=== PATIENT | male | born 1950 | race Caucasian/White ===

== ENCOUNTER 2021-08-19 12:18 | Inpatient (IN) | payer OTHER ==
[~2021-08-19] VITALS: Ht 165.1 cm; Wt 90.7 kg
[2021-08-19] VITALS (9 sets, daily range): BP systolic 96–110; BP diastolic 36–60
--- NOTE | ~2021-08-19 | PROC ---
[address] [address] PROCEDURE REPORT Name: MELINDA PARHAM Room: [address] IN .R.#: [id number] Admission: 08/19/21 Attend Phys: Katrina Houston MD Discharge: Date of : 48 Report #: [id number] THIS REPORT FOR: cc: January Tiwari Mohammad K. DO [facility],Medical Records Staff ~ For GI report, please see the Provation report in Perceptive 7 content. By: [id number] Records Staff JOSHUA /PIERCE
--- NOTE | ~2021-08-19 | PROC ---
[address] [address] PROCEDURE REPORT Name: MELINDA PARHAM Room: [address] IN .R.#: [id number] Admission: 08/19/21 Attend Phys: Katrina Houston MD Discharge: 08/24/21 Date of : 48 Report #: [id number] THIS REPORT FOR: cc: January Tiwari Mohammad K. DO [facility],Medical Records Staff ~ For GI report, please see the Provation report in Perceptive 7 content. By: [id number] Records Staff JOSHUA /PIERCE
--- NOTE | ~2021-08-19 | CON ---
[address] [address] CONSULTATION Name: MELINDA PARHAM Room: [address] IN ..#: [id number] Admission: 08/19/21 Attend Phys: Katrina Houston MD Discharge: Date of : 48 Report #: [id number] THIS REPORT FOR: cc: January Tiwari,Anali Bullock MD ~ cc: January Tiwari DO DATE OF CONSULTATION: 08/19/2021 REQUESTING PHYSICIAN: Katrina Houston MD REASON FOR CONSULTATION: GI bleed. HISTORY OF PRESENT ILLNESS: This is a 70-year-old male who reports 2 days of melena in stool. He also has had symptoms of nausea, vomiting and coffee-ground emesis. He is currently hypotensive with systolic pressure in mid 60s. His BUN and creatinine ratio is 40. PAST MEDICAL HISTORY: Significant for history of hypertension, gastroesophageal reflux disease, hypercholesterolemia, anemia, inguinal hernia repair, laser surgery for varicose veins. ALLERGIES: No known drug allergy. MEDICATIONS: Please refer to MAR. SOCIAL HISTORY: The patient lives at home. There is no history of drug use. The patient is a former smoker. He also drinks alcohol occasionally. FAMILY HISTORY: Noncontributory. PHYSICAL EXAMINATION: VITAL SIGNS: Reveals blood pressure of 97/40, pulse 79, respirations 18, temperature 97.4. LUNGS: Clear. CARDIOVASCULAR: Regular. ABDOMEN: Large, soft, nontender, nondistended. Bowel sounds are positive. NEUROLOGIC: The patient is alert and oriented x 3. LABORATORY DATA: Reveal sodium of 127, potassium is 4.6, BUN is 142, creatinine 3.8, AST is 10, ALT 16, total bili is 0.3, albumin is 3.2. WBC is 9.0 with hemoglobin of 11.1. IMAGING: CT of abdomen and pelvis was obtained. [place] [address] CONSULTATION Name: MELINDA PARHAM Room: [address] IN [facility].#: [id number] Admission: 08/19/21 Attend Phys: Katrina Houston MD Discharge: Date of : 48 Report #: [id number] cholelithiasis, but otherwise unremarkable. ASSESSMENT AND PLAN: The patient with hypotension, history of melena in stool x 2 days and hematemesis. We will fluid resuscitate him as he has also renal failure. I will consider upper endoscopy to rule out gastroduodenal ulcer and treat. We will consider giving him a dose of Reglan and erythromycin to empty out the stomach for better visualization. He should be on Protonix drip, so we loaded him with 80 mg and put him on 8 mg per hour. I will make further recommendation based on endoscopic finding. By: 1725 Gilles Flores MD /domingo
[~2021-08-19 12:18] MED LIST: METOPROLOL SUCC50 MG PO; WATER PILL PO; ZANTAC 150MG T150 MG PO
[2021-08-19] MEDS ORDERED: DOXAZOSIN MESYLA2 MG PO (12:38)
[2021-08-19] MEDS ORDERED: LISINOPRIL20 MG PO (12:38)
[2021-08-19] MEDS ORDERED: TRIAMTERENE-HC1 EAC2 PO (12:39)
[2021-08-19] MEDS ORDERED: VITAMIN D31250 MC1 PO (12:39)
[2021-08-19] MEDS ORDERED: OMEPRAZOLE 20 M20 M1 PO (12:39)
[2021-08-19 13:42] LABS: ABSOLUTE LYMPHOCYTES 1.2 thou/uL (0.8-5.3); ABSOLUTE MONOCYTES 0.7 thou/uL (0.0-1.2); BASOPHILS 0.5 %; EOSINOPHILS 0.4 %; HEMATOCRIT 30.8 % (42.0-52.0); LYMPHOCYTES 13.5 %; MCHC 35.5 g/dL (28.0-37.0); MCV 84.6 fL (80.0-100.0); MONOCYTES 8.1 %; MPV 7.6 fl. (7.2-11.1); NUCLEATED RBCS 0 /100WBC; PLATELET COUNT* 290 thou/uL (150-400); POLYS 77.5 %; RBC 3.65 mil/uL (4.50-6.00); RDW-CV 13.6 % (10.5-14.5)
[2021-08-19 13:48] LABS: CALCIUM 8.1 mg/dL (8.5-10.1); CREATININE 3.8 mg/dL (0.6-1.3); POTASSIUM 4.6 mmol/L (3.5-5.1)
[2021-08-19 13:52] LABS: ALBUMIN 3.2 g/dL (3.4-5.0); TOTAL BILIRUBIN 0.3 mg/dL (<0.1-1.0); TOTAL PROTEIN 6.5 g/dL (6.4-8.2)
[2021-08-19 15:18] LABS: URINE BILIRUBIN NEGATIVE (Negative); URINE BLOOD NEGATIVE (Negative); URINE CLARITY CLEAR; URINE COLOR YELLOW; URINE GLUCOSE-RANDOM NEGATIVE (Negative); URINE KETONES NEGATIVE (Negative); URINE LEUKOCYTES-REFLEX NEGATIVE (Negative); URINE NITRITE-REFLEX NEGATIVE (Negative); URINE PROTEIN NEGATIVE (Negative); URINE SPECIFIC GRAVITY 1.015 (1.005-1.030); URINE UROBILINOGEN 0.2 E.U./dl (0.2-1.0)
[2021-08-19 20:46] LABS: HEMATOCRIT 28.6 % (42.0-52.0); HEMOGLOBIN 9.8 gm/dL (14.0-18.0)
[2021-08-20] VITALS (42 sets, daily range): BP systolic 79–154; BP diastolic 23–82
[2021-08-20 02:49] LABS: HEMATOCRIT 28.6 % (42.0-52.0); HEMOGLOBIN 10.1 gm/dL (14.0-18.0); MCH 29.8 pg (26.0-34.0); MCHC 35.1 g/dL (28.0-37.0); MCV 84.8 fL (80.0-100.0); MPV 7.4 fl. (7.2-11.1); RBC 3.38 mil/uL (4.50-6.00); RDW-CV 13.6 % (10.5-14.5); WBC 8.4 thou/uL (4.0-11.0)
[2021-08-20 03:06] LABS: ALBUMIN 2.8 g/dL (3.4-5.0); CALCIUM 7.3 mg/dL (8.5-10.1); MAGNESIUM 1.8 mg/dL (1.8-2.4); TOTAL BILIRUBIN 0.7 mg/dL (<0.1-1.0); TOTAL PROTEIN 5.4 g/dL (6.4-8.2)
[2021-08-20 03:21] LABS: CREATININE 2.1 mg/dL (0.6-1.3)
--- NOTE | 2021-08-20 06:11 | NUR ---
Pt arrived to floor around 1999. Pt transferred from PACU and recovered in pt room by ELECTRICAL LINE MECHANIC's. Pt had blood infusing on arrival and transfer of care to ORDER CHECKER.
[2021-08-20 06:13] LABS: HEMATOCRIT 28.3 % (42.0-52.0)
--- NOTE | 2021-08-20 10:59 | EKG ---
[place] [address] ELECTROCARDIOGRAM REPORT Name: MELINDA PARHAM Room: [address] IN .R.#: [id number] Admission: 08/19/21 Attend Phys: Katrina Houston, Discharge: Date of : 48 Date of Service: 08/19/21 1309 Report #: [id number] THIS REPORT FOR: //name// [facility] ED Test Date: 2021-08-19 Test Time: 13:09:42 Pat Name: MELINDA PARHAM Department: Room: [facility] Gender: M Elevator Operator Service: SIDRA : 1950 Requested By: Mamadou Putnam Order Number: [id number] MD: Foster Wheat Measurements Intervals [place] Rate: 64 P: 52 CO: 183 QRS: 68 QRSD: 128 T: 58 QT: 412 QTc: 425 Interpretive Statements Sinus rhythm Right bundle branch block Nonspecific ST-T alteration No previous ECG available for comparison Electronically Signed On 08-20-2021 10:58:55 PETROLEUM REFINERY WORKER by Foster Wheat [email or web address] <ELECTRONICALLY SIGNED> By: Foster Wheat MD, [facility] 08/20/21 1058 1309 1309 Foster Wheat MD, [facility] /EPI
[2021-08-20 15:20] LABS: HEMATOCRIT 31.4 % (42.0-52.0); HEMOGLOBIN 10.8 gm/dL (14.0-18.0)
[2021-08-21 02:06] VITALS: BP 134/60
[2021-08-21 03:58] LABS: HEMATOCRIT 28.8 % (42.0-52.0); MCH 29.7 pg (26.0-34.0); MCHC 34.6 g/dL (28.0-37.0); MCV 85.9 fL (80.0-100.0); MPV 7.1 fl. (7.2-11.1); RBC 3.35 mil/uL (4.50-6.00); RDW-CV 13.8 % (10.5-14.5); WBC 6.7 thou/uL (4.0-11.0)
[2021-08-21 04:30] LABS: ALBUMIN 2.8 g/dL (3.4-5.0); CALCIUM 7.9 mg/dL (8.5-10.1); MAGNESIUM 1.7 mg/dL (1.8-2.4); POTASSIUM 4.4 mmol/L (3.5-5.1); TOTAL BILIRUBIN 0.4 mg/dL (<0.1-1.0); TOTAL PROTEIN 5.7 g/dL (6.4-8.2)
--- NOTE | 2021-08-21 05:52 | NUR ---
PT IS ABLE TO COMMUNICATE HIS NEEDS TO STAFF EFFECTIVELY. HE HAS DENIED THE NEED FOR PAIN MEDICATION UP TO THIS TIME. GI FOLLOWING.
[2021-08-21 06:40] VITALS: BP 151/55
[2021-08-21 08:00] VITALS: BP 158/63
[2021-08-21 13:11] VITALS: BP 138/64
[2021-08-21 16:40] VITALS: BP 156/60
[2021-08-21 19:44] VITALS: BP 137/59
[2021-08-22 00:06] VITALS: BP 115/76
--- NOTE | 2021-08-22 03:10 | NUR ---
EKG DONE ON PT DUE TO SUSPECTED RHYTHM CHANGE. EKG CONFIRMS PT NOW HAS ATRIAL FIB. PAGED CONCERNING RHYTHM CHANGE; PT IS ASYMPTOMATIC BUT HR DOES GO TO THE 150s+ WHEN PT IS UP. PT ADVISED TO LIMIT MOVEMENT AROUND THE ROOM BECAUSE HIS HR GOES SO HIGH WHEN HE IS UP.
[2021-08-22 03:42] VITALS: BP 119/62
[2021-08-22 05:18] LABS: HEMATOCRIT 28.4 % (42.0-52.0); HEMOGLOBIN 10.1 gm/dL (14.0-18.0); MCH 29.8 pg (26.0-34.0); MCHC 35.5 g/dL (28.0-37.0); MCV 83.9 fL (80.0-100.0); MPV 7.4 fl. (7.2-11.1); RBC 3.38 mil/uL (4.50-6.00); RDW-CV 13.6 % (10.5-14.5); WBC 8.2 thou/uL (4.0-11.0)
[2021-08-22 05:48] LABS: ALBUMIN 2.9 g/dL (3.4-5.0); CALCIUM 8.3 mg/dL (8.5-10.1); CREATININE 0.9 mg/dL (0.6-1.3); MAGNESIUM 1.4 mg/dL (1.8-2.4); POTASSIUM 4.1 mmol/L (3.5-5.1); TOTAL BILIRUBIN 0.2 mg/dL (<0.1-1.0); TOTAL PROTEIN 5.7 g/dL (6.4-8.2)
[2021-08-22 08:00] VITALS: BP 145/89
--- NOTE | 2021-08-22 08:22 | NUR ---
PT IS ABLE TO COMMUNICATE HIS NEEDS TO STAFF EFFECTIVELY. HE HAS DENIED THE NEED FOR PAIN MEDICATION UP TO 0700 THIS MORNING. PT HAD A CHANGE IN HEART RHYTHM OVERNIGHT (SEE PREVIOUS NOTE) AND IS NOW IN ATRIAL FIB.; AWARE. GI FOLLOWING; PT HAS BEEN NPO SINCE MIDNIGHT FOR A POSSIBLE EGD TODAY.
--- NOTE | 2021-08-22 10:03 | EKG ---
[place] [address] ELECTROCARDIOGRAM REPORT Name: MELINDA PARHAM Room: [place] [address] ADM IN [facility]#: [id number] Admission: 08/19/21 Attend Phys: Katrina Houston, Discharge: Date of : 48 Date of Service: 08/22/21 0304 Report #: [id number] THIS REPORT FOR: //name// [facility] Test Date: 2021-08-22 Test Time: 03:04:33 Pat Name: MELINDA PRASAD Department: Room: [place] [address] Gender: M Media Services Director: [facility] : 1950 Requested By: Luis Nieves Order Number: [id number] Gwen MD: Donnie Sanchez Measurements Intervals [place] Rate: 116 P: [place]: QRS: 52 QRSD: 122 T: 42 QT: 372 QTc: 517 Interpretive Statements Atrial fibrillation Right bundle branch block Compared to ECG 08/19/2021 13:09:42 Sinus rhythm no longer present Electronically Signed On 08-22-2021 10:03:18 ELASTIC TAPE INSERTER by Donnie Sanchez [email or web address] <ELECTRONICALLY SIGNED> By: Donnie Sanchez MD, [facility] 08/22/21 1003 Donnie Sanchez MD, [facility] /EPI
[2021-08-22 11:25] VITALS: BP 123/56
[2021-08-22 11:59] VITALS: BP 135/63
--- NOTE | 2021-08-22 12:34 | 2DMMODE ---
[place] [address] 2 D/M-MODE ECHOCARDIOGRAM Name: MELINDA PARHAM Room: [place] [address] ADM IN [place]#: [id number] Admission: 08/19/21 Attend Phys: Katrina Houston, Discharge: Date of : 48 Date of Service: 08/22/21 1234 Report #: [id number] THIS REPORT FOR: cc: January Tiwari,Donnie Solis MD [facility] ~ APPROVED REPORT Study performed: 08/22/2021 10:52:01 EXAM: Comprehensive 2D, Doppler, and color-flow Echocardiogram Patient Location: In-Patient Room #: [facility] Status: routine BSA: 2.02 HR: 107 bpm BP: 123/56 mmHg Rhythm: Atrial Fibrillation Other Information Study Quality: Good Indications Atrial Fibrillation 2D Dimensions IVSd: 10.50 (7-11mm) LVOT Diam: 22.64 (18-24mm) LVDd: 39.94 mm PWd: 10.03 (7-11mm) Ascending Ao: 38.78 (22-36mm) LVDs: 23.40 (25-40mm) Aortic Root: 37.78 mm Volumes Left Atrial Volume (Systole) LA ESV Index: 23.10 mL/m2 Aortic Valve AoV Peak Pierce.: 1.45 m/s AO Peak Gr.: 8.46 mmHg LVOT Max P.08 mmHg AO Mean Gr.: 4.45 mmHg LVOT Mean P.49 mmHg LVOT Max V: 1.13 m/s AO V2 VTI: 24.21 cm LVOT Mean V: 0.73 m/s YURI (VTI): 2.69 cm2 LVOT V1 VTI: 16.18 [place] [address] 2 D/M-MODE ECHOCARDIOGRAM Name: MELINDA PARHAM Room: [address] IN [facility]#: [id number] Admission: 08/19/21 Attend Phys: Katrina Houston, Discharge: Date of : 48 Date of Service: 08/22/21 1234 Report #: [id number] TDI Medial E' Pierce.: 0.15 m/s Lateral E' Pierce.: 0.16 m/s Pulmonary Valve PV Peak Pierce.: 1.18 m/s PV Peak Gr.: 5.56 mmHg Tricuspid Valve RAP Estimate: 5.00 mmHg TR Peak Gr.: 23.90 mmHg RVSP: 29.00 mmHg PA Pressure: 29.00 mmHg Left Ventricle The left ventricle is normal size. There is normal LV segmental wall motion. There is normal left ventricular wall thickness. Left ventricular systolic function is normal. The left ventricular ejection fraction is within the normal range. LVEF is 55-60%. This study is not technically sufficient to allow evaluation of the LV diastolic function due to atrial fibrillation. Right Ventricle The right ventricle is normal size. The right ventricular systolic function is normal. Atria Left atrium is mildly dilated. The right atrium size is normal. Aortic Valve The aortic valve is normal in structure. No aortic regurgitation is present. There is no aortic valvular stenosis. Mitral Valve The mitral valve is normal in structure. There is no mitral valve regurgitation noted. No evidence of mitral valve stenosis. Tricuspid Valve The tricuspid valve is normal in structure. Mild tricuspid regurgitation. No pulmonary hypertension. Pulmonic Valve The pulmonary valve is normal in structure. There is no pulmonic valvular regurgitation. Great Vessels The aortic root is normal in size. The ascending aorta is mildly [facility] [address] [place] [address] 2 D/M-MODE ECHOCARDIOGRAM Name: MELINDA PARHAM Room: [address] IN [facility]#: [id number] Admission: 08/19/21 Attend Phys: Katrina Houston, Discharge: Date of : 48 Date of Service: 08/22/21 1234 Report #: [id number] dilated. IVC is normal in size and collapses >50% with inspiration. Pericardium There is no pericardial effusion. <Conclusion> LVEF is 55-60%. Left atrium is mildly dilated. <ELECTRONICALLY SIGNED> By: Donnie Sanchez MD, FACC 08/22/21 1234 1234 1234 Donnie Sanchez MD, FACC /INF
--- NOTE | 2021-08-22 12:40 | CON ---
[address] [address] CONSULTATION Name: MELINDA PARHAM Room: [address] IN M.R.#: [id number] Admission: 08/19/21 Attend Phys: Katrina Houston MD Discharge: Date of : 48 Report #: [id number] THIS REPORT FOR: cc: January Tiwari,Donnie Solis MD [facility] ~ cc: January Tiwari DO DATE OF CONSULTATION: 08/22/2021 CARDIOLOGY CONSULTATION PRIMARY CARE PHYSICIAN: January Tiwari DO, in [place]. HISTORY OF PRESENT ILLNESS: The patient is a 70-year-old single white male who I was asked to see in the hospital today after he was noted to be in atrial fibrillation. The patient has no previous history of heart disease. He is not very active at this time. He was doing well until 4 days ago. He woke up last Sunday and felt lightheaded. He apparently had a loose black stool. He then vomited what appeared to be coffee-grounds. He notes his heart was racing. He was brought here to [facility] by family members. He was admitted and seen by GI. He was scheduled to undergo endoscopy. On admission, the patient was in a sinus rhythm. However, last night, he went into atrial fibrillation with rapid ventricular response rate. Cardiology consultation was requested. The patient notes occasional skipped heartbeats in the past, but no prolonged palpitations or syncope. He denies any recent fever. He has no history of chest pain, shortness of breath. He has a previous history of lower extremity edema. PAST MEDICAL HISTORY: Significant for hernia repair. He has a history of hypertension, hyperlipidemia. No diabetes. He has had laser therapy for varicose veins in the past. MEDICATIONS: On admission included metoprolol, lisinopril, Cardura, Dyazide, omeprazole. ALLERGIES: HE HAS PREVIOUS HIVES AFTER RECEIVING IV CONTRAST FOR CT SCAN YEARS AGO. FAMILY HISTORY: Unknown since he was adopted. SOCIAL HISTORY: He is , lives with daughter here in [place]. He is a retired construction scheduler. He uses alcohol occasionally. REVIEW OF SYSTEMS: No history of stroke. He does snore [place] [address] CONSULTATION Name: MELINDA PARHAM Room: [address]#: [id number] Admission: 08/19/21 Attend Phys: Katrina Houston MD Discharge: Date of : 48 Report #: [id number] of asthma. He has had previous colonoscopy showed a polyp. No kidney disease, no cancer, no psychiatric illness. No chronic skin condition. PHYSICAL EXAMINATION: GENERAL: Revealed a middle-aged male, who appeared in no acute distress. VITAL SIGNS: He had a blood pressure of 120/60, pulse now is 100, he was afebrile. HEENT: He was anicteric. Conjunctivae pink. Mucous membranes moist. NECK: Neck veins do not appear distended. No carotid bruits. Neck is supple. CHEST: Clear to auscultation. HEART: Irregular, tachycardia. No significant murmurs. ABDOMEN: Soft, it was obese. No masses were palpated. EXTREMITIES: Had no edema. Dorsalis pedis pulse 3+ bilaterally. SKIN: Cool and dry. LABORATORY DATA: His ECG on admission showed a sinus rhythm and right bundle branch block. He now appears to be in rapid atrial fibrillation. His workup so far, he had a CT scan of the abdomen on admission that showed gallstones, otherwise unremarkable. His lab work on admission, his creatinine was 3.8, it is now 0.9, albumin is 2.9. High sensitivity troponin was 5. His hemoglobin on admission was 9.8. He then received a transfusion. His COVID antigen stat test was negative. Urinalysis negative for protein. IMPRESSION AND RECOMMENDATIONS: 1. Atrial fibrillation. I would recommend an echocardiogram and thyroid function studies. I would recommend diltiazem to slow the ventricular response rate. I would not recommend anticoagulation at this time secondary to gastrointestinal bleeding. 2. Gastrointestinal bleeding. The patient is scheduled for endoscopy. He appears to have no cardiac contraindication to endoscopy. 3. Anemia. The patient received a transfusion. 4. Acute kidney injury. Kidney function improved with hydration. 5. PREVIOUS REACTION TO IV CONTRAST. 6. Hypertension. The patient has been on beta sean, REGULO inhibitor, alpha sean and diuretic. 7. Hyperlipidemia. The patient is on a statin drug. <ELECTRONICALLY SIGNED> By: Donnie Sanchez MD, [facility] 08/22/21 1240 0928 [id number] Sanchez MD, [facility] /nt
--- NOTE | 2021-08-22 16:44 | NUR ---
CM ASSESSMENT: PT A&O, INDEPENDENT WITH ADL'S, AND DRIVES. PT RESIDES AT HOME WITH HIS DTR. PT USES A CANE FOR MOBILITY. PT HAS PAST HX OF HH. PT HAS 0 HX OF SNF. PT MAY BENEFIT FROM HH AT D/C. CM WILL REMAIN AVAILABLE TO ASSIST AND FOLLOW NEEDED.
--- NOTE | 2021-08-22 17:55 | NUR ---
pt progressing towards dc goals. pt up in room walking with his cane with steady gait. vss afebrile. pt down for repeat egd, biopsy's were taken and pt was brought back up to his room, and was allowed to eat regular diet. heart rate back in normal sinus rhythm. will continue to monitor plan of care.
[2021-08-22 20:01] VITALS: BP 161/59
[2021-08-23 00:42] VITALS: BP 148/61
[2021-08-23 04:18] VITALS: BP 148/52
[2021-08-23 04:46] LABS: HEMATOCRIT 28.1 % (42.0-52.0); HEMOGLOBIN 9.6 gm/dL (14.0-18.0); MCH 29.6 pg (26.0-34.0); MCHC 34.2 g/dL (28.0-37.0); MCV 86.4 fL (80.0-100.0); MPV 7.3 fl. (7.2-11.1); RBC 3.25 mil/uL (4.50-6.00); RDW-CV 13.7 % (10.5-14.5); WBC 8.4 thou/uL (4.0-11.0)
[2021-08-23 05:01] LABS: CHOLESTEROL 142 mg/dL (<200); HDL CHOLESTEROL 34 mg/dL (>40); LDL CHOLESTEROL 82 mg/dL (<100); TC:HDL 4.2 Ratio (Not establshd); TRIGLYCERIDE 133 mg/dL (<150); VLDL 27 mg/dL (<40)
[2021-08-23 05:05] LABS: SERUM ASSESSMENT Clear
[2021-08-23 07:52] VITALS: BP 150/59
--- NOTE | 2021-08-23 10:07 | NUR ---
PLAN OF CARE: PLAN FOR THE PT TO D/C HOME WITH SELF-CARE WHEN MEDICALLY STABLE. PT MAY BENEFIT FROM HH AT D/C. PT IS WILLING TO ACCEPT HH AT D/C, BUT DOES NOT BELIEVE THAT HE WILL NEED IT. CM WILL REMAIN AVAILABLE TO ASSIST AND FOLLOW NEEDED.
--- NOTE | 2021-08-23 11:38 | EKG ---
[place] [address] ELECTROCARDIOGRAM REPORT Name: MELINDA PARHAM Room: [place] [address] ADM IN [facility].#: [id number] Admission: 08/19/21 Attend Phys: Katrina Houston, Discharge: Date of : 48 Date of Service: 08/23/21 0749 Report #: [id number] THIS REPORT FOR: //name// [facility] Test Date: 2021-08-23 Test Time: 07:49:24 Pat Name: MELINDARandall PARHAM Department: Room: [place] [address] Gender: M Locomotive Pipe Fitter: : 1950 Requested By: Donnie Sanchez Order Number: [id number] Gwen MD: Donnie Sanchez Measurements Intervals [place] Rate: 63 P: 70 KS: 63 QRS: 43 QRSD: 122 T: 48 QT: 427 QTc: 438 Interpretive Statements Sinus rhythm Short KS interval Right bundle branch block Compared to ECG 08/22/2021 03:04:33 Atrial fibrillation no longer present Electronically Signed On 08-23-2021 11:38:10 SOFTWARE DESIGN ENGINEER by Donnie Sanchez [email or web address] <ELECTRONICALLY SIGNED> By: Donnie Sanchez MD, [facility] 08/23/21 1138 0749 0749 Donnie Sanchez MD, [facility] /EPI
[2021-08-23] MEDS ORDERED: SORINE 80 MG TA80 M1 PO (11:52)
[2021-08-23 12:05] VITALS: BP 119/53
[2021-08-23 16:54] VITALS: BP 119/45
[2021-08-23 20:00] VITALS: BP 107/77
[2021-08-24 00:49] VITALS: BP 138/57
--- NOTE | 2021-08-24 03:57 | NUR ---
ASSUMED CARE OF PT AFTER REPORT AT 1915. PT A&OX4. VSS. PHYSICAL ASSESSMENT COMPLETED AND CHARTED. PT ON RA. PT TRACING SR/BBB ON TELE. PT DENIES ANY PAIN. CALL LIGHT WITHIN REACH.
[2021-08-24 04:14] VITALS: BP 142/54
[2021-08-24 08:00] VITALS: BP 135/60
--- NOTE | 2021-08-24 09:28 | NUR ---
cm faxed referral to [facility] . [phone].
--- NOTE | 2021-08-24 10:10 | EKG ---
[place] [address] ELECTROCARDIOGRAM REPORT Name: MELINDA PARHAM Room: [address] IN .R.#: [id number] Admission: 08/19/21 Attend Phys: Katrina Houston, Discharge: Date of : 48 Date of Service: 08/24/21 0552 Report #: [id number] THIS REPORT FOR: //name// [facility] Test Date: 2021-08-24 Test Time: 05:52:09 Pat Name: MELINDA PARHAM Department: Room: [facility] Gender: M Legal Biller: IVAN : 1950 Requested By: Donnie Sanchez Order Number: [id number] Reading MD: Donnie Sanchez Measurements Intervals [place] Rate: 71 P: 44 KS: 168 QRS: 42 QRSD: 114 T: 35 QT: 425 QTc: 462 Interpretive Statements Sinus rhythm Incomplete right bundle branch block Low voltage, extremity and precordial leads Compared to ECG 08/23/2021 07:49:24 Low QRS voltage now present Electronically Signed On 08-24-2021 10:10:24 SIGNAL APPRENTICE by Donnie Sanchez [email or web address] <ELECTRONICALLY SIGNED> By: Donnie Sanchez MD, [facility] 08/24/21 1010 0552 0552 Donnie Sanchez MD, [facility] /EPI
[2021-08-24 10:51] VITALS: BP 135/60
--- NOTE | 2021-08-24 11:05 | NUR ---
ORDERS NOTED FOR OKAY TO D/C TO HOME THIS SHIFT PER AND CARDIO - IV TO LEFT WRIST D/C'D ALONG WITH IV PRIOR TO D/C- D/C EDUCATION/TEACHING/NEEDED FOLLOW UP'S COMMUNICATED TO PT WITH VERBAL UNDERSTANDING NOTED PER PT- WRITTEN EDUCATTION ALONG WITH SCRIPT PROVIDED TO PT WITH ALL QUESTIONS AND CONCERNS ADDRESSED PRIOR TO D/C- BELONGINGS PACKED AND ACCOUNTED FOR PER PT- PT CURRENTLY DRESSED KAND AWAITTING RIDE FOR D/C- ALL NEEDS MET AT THIS TIME
[2021-08-24 12:29] VITALS: BP 135/60
[2021-08-24] MEDS ORDERED: PROTONIX40 M4 PO (13:13)
[2021-08-24] MEDS ORDERED: CARAFATE1 GM PO ×2 (13:13→13:15)
[2021-08-24] MEDS ORDERED: ASA81BEC PO (13:14)
--- NOTE | 2021-08-25 10:08 | PATH ---
[address] [address] PATHOLOGY RPT PROCEDURE Name: BRENNAN SIMS Room: [address] IN M.R.#: [id number] Admission: 08/19/21 Date of : [birth year] Discharge: 08/24/21 Report #: [id number] Path Case #: [id number] [facility] Accession Number: [id number] . 01 Material submitted: . PART A: duodenum - BIOPSY OF DUODENAL VALVE ULCER PART B: esophagus - ESOPHAGEAL BIOPSY TO R/O WALKER'S . 01 Clinical history: . EGD IN OR . 02 Diagnosis: A. Biopsy of duodenal valve ulcer: - Severe nonspecific active duodenitis with ulceration and fibrosis, negative for granulomas, viral inclusions and dysplasia/adenomatous change. . B. 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 . (KATRIN:sharri; 08/24/2021) MBR 08/24/2021 1159 Local . 02 Electronically signed: . Neto Swift MD, Pathologist NPI- [id number] . 01 Gross description: . A. The specimen is received in formalin, labeled "Brennan Sims, duodenal valve ulcer BX". Received are 3 segments of yellow-barajas tissue ranging in size from 0.3-0.4 cm in maximum dimensions. The specimen is entirely submitted in cassette A1. . B. The specimen is received in formalin, labeled "Brennan Sims, esophageal BX to rule out Walker's". Received is a single segment of pale barajas tissue measuring 0.3 cm in maximum dimensions. The specimen is entirely submitted in cassette B1. ([facility]; 08/23/2021) NRI/NRI 08/23/2021 1520 Local . 02 Pathologist provided ICD-10: K29.80, K26.9, K20.90 . 02 CPT . 766272, 257060 Specimen Comment: A courtesy copy of this report has been sent to [phone] [place] [address] PATHOLOGY RPT PROCEDURE Name: BRENNAN SIMS Room: [address] IN .R.#: [id number] Admission: 08/19/21 Date of : [birth year] Discharge: 08/24/21 Report #: [id number] Path Case #: [id number] Specimen Comment: Report sent to Specimen Comment: A duplicate report has been generated due to demographic updates. Performed at: [address], [place], [place] [address] MD Boyd Villalba MD Phone: [phone] Performed at: 02 [facility] [address], [place], [place] [address] MD Neto Swift MD Phone: [phone]
== END 2021-08-24 12:30 | disposition home or self-care (01) | DRG 377 ==
LOC: M.ERS 12:18 → M.2W 15:05 → M.TBA-ER 15:05 → M.ICU 20:46 → M.2W 08-20 20:45
PROVIDERS: Internal Medicine Cardiovascular Disease; Internal Medicine Gastroenterology; Physician Assistant; ADMIT Internal Medicine; ATTEND Internal Medicine
PROC: 0W3P8ZZ Control Bleeding in Gastrointestinal Tract, Via Natural or Artificial Opening Endoscopic (ICD-10-PCS; principal; 2021-08-19)
PROC: 30233N1 Transfusion of Nonautologous Red Blood Cells into Peripheral Vein, Percutaneous Approach (ICD-10-PCS; 2021-08-19)
PROC: 0DB98ZX Excision of Duodenum, Via Natural or Artificial Opening Endoscopic, Diagnostic (ICD-10-PCS; 2021-08-22)
PROC: 0DB58ZX Excision of Esophagus, Via Natural or Artificial Opening Endoscopic, Diagnostic (ICD-10-PCS; 2021-08-22)
DX: K26.4 Chronic or unspecified duodenal ulcer with hemorrhage (principal); N17.0 Acute kidney failure with tubular necrosis; E87.1 Hypo-osmolality and hyponatremia; D62 Acute posthemorrhagic anemia; K20.90 Esophagitis, unspecified without bleeding; K22.70 Barrett's esophagus without dysplasia; K29.71 Gastritis, unspecified, with bleeding; K44.9 Diaphragmatic hernia without obstruction or gangrene; Z20.822 Contact with and (suspected) exposure to COVID-19; E78.5 Hyperlipidemia, unspecified; I12.9 Hypertensive chronic kidney disease with stage 1 through stage 4 chronic kidney disease, or unspecified chronic kidney disease; N18.9 Chronic kidney disease, unspecified; I48.91 Unspecified atrial fibrillation; Z79.01 Long term (current) use of anticoagulants; I95.9 Hypotension, unspecified

== ENCOUNTER 2021-08-25 05:00 | Inpatient (IN) | payer OTHER ==
[~2021-08-25] VITALS: Ht 165.1 cm; Wt 95.3 kg
[2021-08-25] VITALS (42 sets, daily range): BP systolic 74–181; BP diastolic 42–81
--- NOTE | ~2021-08-25 | PROC ---
[address] [address] PROCEDURE REPORT Name: MELINDA PARHAM Room: [address] IN .R.#: [id number] Admission: 08/27/21 Attend Phys: Katrina Houston MD Discharge: 08/28/21 Date of : [birth year] Report #: [id number] THIS REPORT FOR: cc: January Tiwari Mohammad K. DO JOSHUA,Medical Records Staff ~ For GI report, please see the Provation report in Perceptive 7 content. By: [id number] Records Staff JOSHUA /PIERCE
[~2021-08-25 05:00] MED LIST changes: +ASA81BEC PO; +CARAFATE1 GM PO; +DOXAZOSIN MESYLA2 MG PO; +LISINOPRIL20 MG PO; +OMEPRAZOLE 20 M20 M1 PO; +PROTONIX40 M4 PO; +SORINE 80 MG TA80 M1 PO; +TRIAMTERENE-HC1 EAC2 PO; +VITAMIN D31250 MC1 PO
[2021-08-25 05:59] LABS: ABSOLUTE BASOPHILS 0.1 thou/uL (0.0-0.2); ABSOLUTE EOSINOPHILS 0.3 thou/uL (0.0-0.7); ABSOLUTE LYMPHOCYTES 1.6 thou/uL (0.8-5.3); ABSOLUTE MONOCYTES 0.7 thou/uL (0.0-1.2); ABSOLUTE NEUTROPHILS 8.9 thou/uL (1.6-8.1); BASOPHILS 0.5 %; EOSINOPHILS 2.5 %; HEMATOCRIT 24.4 % (42.0-52.0); HEMOGLOBIN 8.2 gm/dL (14.0-18.0); LYMPHOCYTES 14.2 %; MCH 29.2 pg (26.0-34.0); MCHC 33.5 g/dL (28.0-37.0); MCV 87.4 fL (80.0-100.0); MONOCYTES 6.1 %; MPV 7.6 fl. (7.2-11.1); NUCLEATED RBCS 0 /100WBC; PLATELET COUNT* 255 thou/uL (150-400); POLYS 76.7 %; RBC 2.79 mil/uL (4.50-6.00); RDW-CV 13.9 % (10.5-14.5); WBC 11.6 thou/uL (4.0-11.0)
[2021-08-25 06:03] LABS: CALCIUM 7.6 mg/dL (8.5-10.1); CREATININE 1.1 mg/dL (0.6-1.3); POTASSIUM 3.7 mmol/L (3.5-5.1)
[2021-08-25 06:06] LABS: INR 1.1; PROTIME 10.8 Seconds (9.20-11.50)
[2021-08-25 06:08] LABS: ALBUMIN 2.6 g/dL (3.4-5.0); TOTAL BILIRUBIN 0.2 mg/dL (<0.1-1.0); TOTAL PROTEIN 5.1 g/dL (6.4-8.2)
[2021-08-25 07:31] LABS: URINE BILIRUBIN NEGATIVE (Negative); URINE BLOOD NEGATIVE (Negative); URINE CLARITY CLEAR; URINE COLOR ORANGE; URINE GLUCOSE-RANDOM NEGATIVE (Negative); URINE KETONES NEGATIVE (Negative); URINE LEUKOCYTES-REFLEX NEGATIVE (Negative); URINE NITRITE-REFLEX NEGATIVE (Negative); URINE PROTEIN NEGATIVE (Negative); URINE SPECIFIC GRAVITY 1.015 (1.005-1.030); URINE UROBILINOGEN 0.2 E.U./dl (0.2-1.0)
[2021-08-25 09:22] LABS: HEMATOCRIT 23.3 % (42.0-52.0); HEMOGLOBIN 7.8 gm/dL (14.0-18.0); MCH 29.1 pg (26.0-34.0); MCHC 33.2 g/dL (28.0-37.0); MCV 87.4 fL (80.0-100.0); MPV 7.2 fl. (7.2-11.1); RBC 2.67 mil/uL (4.50-6.00); RDW-CV 13.6 % (10.5-14.5); WBC 11.6 thou/uL (4.0-11.0)
[2021-08-25 15:52] LABS: HEMATOCRIT 21.2 % (42.0-52.0); HEMOGLOBIN 7.2 gm/dL (14.0-18.0); MCH 29.7 pg (26.0-34.0); MCHC 34.1 g/dL (28.0-37.0); MPV 7.4 fl. (7.2-11.1); RBC 2.43 mil/uL (4.50-6.00); RDW-CV 13.8 % (10.5-14.5); WBC 8.4 thou/uL (4.0-11.0)
[2021-08-25 22:39] LABS: HEMATOCRIT 23.3 % (42.0-52.0); HEMOGLOBIN 7.7 gm/dL (14.0-18.0); MCH 28.6 pg (26.0-34.0); MCHC 33.1 g/dL (28.0-37.0); MCV 86.4 fL (80.0-100.0); MPV 7.5 fl. (7.2-11.1); NUCLEATED RBCS 0 /100WBC; PLATELET COUNT* 203 thou/uL (150-400); RDW-CV 14.5 % (10.5-14.5); WBC 12.9 thou/uL (4.0-11.0)
[2021-08-25 22:45] LABS: CALCIUM 7.5 mg/dL (8.5-10.1); CREATININE 0.8 mg/dL (0.6-1.3); POTASSIUM 4.1 mmol/L (3.5-5.1)
[2021-08-25 23:18] LABS: ABSOLUTE LYMPHOCYTES 0.3 thou/uL (0.8-5.3); ABSOLUTE MONOCYTES 0.1 thou/uL (0.0-1.2); ABSOLUTE NEUTROPHILS 12.5 thou/uL (1.6-8.1); ANISOCYTOSIS Occasional; HYPOCHROMASIA 2+; PLATELET ESTIMATE ADEQUATE; TOXIC GRANULATION 2+
[2021-08-26] VITALS (40 sets, daily range): BP systolic 117–155; BP diastolic 41–74
[2021-08-26 04:24] LABS: HEMATOCRIT 21.6 % (42.0-52.0); HEMOGLOBIN 7.2 gm/dL (14.0-18.0); MCH 28.9 pg (26.0-34.0); MCHC 33.4 g/dL (28.0-37.0); MCV 86.6 fL (80.0-100.0); MPV 7.2 fl. (7.2-11.1); RBC 2.49 mil/uL (4.50-6.00); RDW-CV 14.5 % (10.5-14.5); WBC 12.8 thou/uL (4.0-11.0)
[2021-08-26 04:33] LABS: CALCIUM 7.3 mg/dL (8.5-10.1); CREATININE 0.9 mg/dL (0.6-1.3); POTASSIUM 4.1 mmol/L (3.5-5.1)
[2021-08-26 04:38] LABS: ALBUMIN 2.4 g/dL (3.4-5.0); MAGNESIUM 1.4 mg/dL (1.8-2.4); TOTAL BILIRUBIN 0.4 mg/dL (<0.1-1.0); TOTAL PROTEIN 4.8 g/dL (6.4-8.2)
--- NOTE | 2021-08-26 10:54 | EKG ---
[place] [address] ELECTROCARDIOGRAM REPORT Name: MELINDA PARHAM Room: [address]#: [id number] Admission: 08/25/21 Attend Phys: Katrina Houston, Discharge: Date of : [birth year] Date of Service: 08/25/21 0501 Report #: [id number] THIS REPORT FOR: //name// [facility] ED Test Date: 2021-08-25 Test Time: 05:01:32 Pat Name: MELINDA SCOTTTCHER Department: Room: [address] Gender: M Group Fitness Department Head: : 1950 Requested By: Katrina Houston Order Number: [id number] Gwen MD: Donnie Sanchez Measurements Intervals [place] Rate: 96 P: 55 HI: 145 QRS: 72 QRSD: 115 T: 47 QT: 389 QTc: 492 Interpretive Statements Sinus rhythm Incomplete right bundle branch block Low voltage, precordial leads Compared to ECG 08/24/2021 05:52:09 No significant changes Electronically Signed On 08-26-2021 10:53:57 GEOLOGICAL ENGINEERING TEACHER by Donnie Sanchez [email or web address] <ELECTRONICALLY SIGNED> By: Donnie Sanchez MD, [facility] 08/26/21 1053 0501 0501 Donnie Sanchez MD, [facility] /EPI
[2021-08-26 12:16] LABS: HEMATOCRIT 20.5 % (42.0-52.0); MCHC 33.6 g/dL (28.0-37.0); MCV 86.3 fL (80.0-100.0); MPV 7.5 fl. (7.2-11.1); RBC 2.38 mil/uL (4.50-6.00); WBC 13.4 thou/uL (4.0-11.0)
[2021-08-26 12:25] LABS: HEMOGLOBIN 6.9 gm/dL (14.0-18.0)
[2021-08-26 20:42] LABS: HEMATOCRIT 23.1 % (42.0-52.0); HEMOGLOBIN 7.8 gm/dL (14.0-18.0); MCH 29.2 pg (26.0-34.0); MCHC 33.9 g/dL (28.0-37.0); MCV 86.2 fL (80.0-100.0); MPV 7.2 fl. (7.2-11.1); RBC 2.68 mil/uL (4.50-6.00); RDW-CV 15.1 % (10.5-14.5); WBC 11.8 thou/uL (4.0-11.0)
[2021-08-27] VITALS (13 sets, daily range): BP systolic 132–167; BP diastolic 48–105
[2021-08-27 04:00] LABS: HEMOGLOBIN 7.5 gm/dL (14.0-18.0); MCHC 33.9 g/dL (28.0-37.0); MCV 85.5 fL (80.0-100.0); MPV 7.3 fl. (7.2-11.1); RBC 2.57 mil/uL (4.50-6.00); RDW-CV 14.9 % (10.5-14.5); WBC 10.6 thou/uL (4.0-11.0)
[2021-08-27 04:20] LABS: ALBUMIN 2.3 g/dL (3.4-5.0); CALCIUM 7.3 mg/dL (8.5-10.1); CREATININE 0.7 mg/dL (0.6-1.3); MAGNESIUM 1.7 mg/dL (1.8-2.4); POTASSIUM 3.5 mmol/L (3.5-5.1); TOTAL BILIRUBIN 0.3 mg/dL (<0.1-1.0); TOTAL PROTEIN 4.6 g/dL (6.4-8.2)
[2021-08-28] VITALS: BP 184/68
[2021-08-28 03:59] LABS: HEMATOCRIT 23.1 % (42.0-52.0); HEMOGLOBIN 7.9 gm/dL (14.0-18.0); MCH 29.7 pg (26.0-34.0); MCHC 34.2 g/dL (28.0-37.0); MCV 86.9 fL (80.0-100.0); RBC 2.66 mil/uL (4.50-6.00); RDW-CV 15.1 % (10.5-14.5); WBC 10.2 thou/uL (4.0-11.0)
[2021-08-28 04:00] VITALS: BP 177/67
[2021-08-28 04:20] LABS: ALBUMIN 2.5 g/dL (3.4-5.0); CALCIUM 7.8 mg/dL (8.5-10.1); CREATININE 0.7 mg/dL (0.6-1.3); MAGNESIUM 1.6 mg/dL (1.8-2.4); POTASSIUM 3.2 mmol/L (3.5-5.1); TOTAL BILIRUBIN 0.4 mg/dL (<0.1-1.0); TOTAL PROTEIN 5.1 g/dL (6.4-8.2)
[2021-08-28 08:00] VITALS: BP 153/74
[2021-08-28 11:17] VITALS: BP 153/74
== END 2021-08-28 12:30 | disposition home or self-care (01) | DRG 270 ==
LOC: M.ERS 05:00 → M.TBA-ER 07:23 → M.ICU 07:23 → M.2W 08-27 18:16
PROVIDERS: Internal Medicine Gastroenterology; Personal Emergency Response Attendant; ADMIT Internal Medicine; ATTEND Internal Medicine
PROC: 0W3P8ZZ Control Bleeding in Gastrointestinal Tract, Via Natural or Artificial Opening Endoscopic (ICD-10-PCS; 2021-08-27)
PROC: B4121ZZ Fluoroscopy of Hepatic Artery using Low Osmolar Contrast (ICD-10-PCS; 2021-08-27)
PROC: B4101ZZ Fluoroscopy of Abdominal Aorta using Low Osmolar Contrast (ICD-10-PCS; 2021-08-27)
PROC: B4181ZZ Fluoroscopy of Bilateral Renal Arteries using Low Osmolar Contrast (ICD-10-PCS; 2021-08-27)
PROC: B4141ZZ Fluoroscopy of Superior Mesenteric Artery using Low Osmolar Contrast (ICD-10-PCS; 2021-08-27)
PROC: 04V33DZ Restriction of Hepatic Artery with Intraluminal Device, Percutaneous Approach (ICD-10-PCS; 2021-08-27)
PROC: 0DJ08ZZ Inspection of Upper Intestinal Tract, Via Natural or Artificial Opening Endoscopic (ICD-10-PCS; 2021-08-27)
PROC: 30233N1 Transfusion of Nonautologous Red Blood Cells into Peripheral Vein, Percutaneous Approach (ICD-10-PCS; principal; 2021-08-28)
DX: I95.9 Hypotension, unspecified (principal); K26.4 Chronic or unspecified duodenal ulcer with hemorrhage; E44.1 Mild protein-calorie malnutrition; D62 Acute posthemorrhagic anemia; Z20.822 Contact with and (suspected) exposure to COVID-19; I48.91 Unspecified atrial fibrillation; Z79.01 Long term (current) use of anticoagulants; E11.51 Type 2 diabetes mellitus with diabetic peripheral angiopathy without gangrene; Z87.891 Personal history of nicotine dependence; E78.5 Hyperlipidemia, unspecified; Z68.34 Body mass index [BMI] 34.0-34.9, adult